=== PATIENT | male | born 1985 | race Caucasian/White ===

== ENCOUNTER 2017-10-26 21:31 | Emergency (ER) | payer MEDICAID ==
[~2017-10-26] VITALS: Ht 172.7 cm; Wt 91.0 kg
[2017-10-26] MEDS ORDERED: ONDANSETRON HCL 4MG/2ML VIAL IV STA (22:40)
[2017-10-26] MEDS ORDERED: MORPHINE SULFATE 4 MG/ML CPJ (NOT FOR IM USE) IV STA (22:40)
[2017-10-26] MEDS ORDERED: SODIUM CHLORIDE 0.9% 1,000 ML IV ONE (22:40)
[2017-10-26 23:27] LABS: CLARITY URINE CLEAR (CLEAR); COLOR URINE YELLOW (YELLOW); KETONES URINE 3+ (NEGATIVE); LEUKOCYTE ESTERASE URINE NEGATIVE (NEGATIVE); NITRITE URINE NEGATIVE (NEGATIVE); OCCULT BLOOD URINE NEGATIVE (NEGATIVE); PH URINE 5.5 (4.5-8.0); PROTEIN URINE 1+ (NEGATIVE); SPECIFIC GRAVITY URINE 1.051 (1.005-1.030); UROBILINOGEN URINE 0.2 E.U./dL (0.2-1.0)
[2017-10-26 23:41] LABS: BASOPHILS % 0.3 % (0.0-2.0); EOSINOPHILS % 0.1 % (0.0-5.0); HEMATOCRIT. 42.7 % (42.0-52.0); HEMOGLOBIN. 14.5 g/dL (14.0-18.0); LYMPHOCYTES % 8.5 % (20.0-50.0); MEAN CORPUSCULAR HEMOGLOBIN 31.7 pg (28.0-32.0); MEAN PLATELET VOLUME 7.9 fl (7.4-10.4); MONOCYTES % 2.6 % (2.0-8.0); NEUTROPHILS % 88.5 % (40.0-76.0); PLATELET 196 x1000/uL (130-400); RED BLOOD CELL COUNT 4.59 mill/uL (4.7-6.1); RED CELL DISTRIBUTION WIDTH 12.8 % (11.6-14.6)
[2017-10-26 23:47] LABS: INR 1.1; PROTHROMBIN TIME 11.3 sec (9.4-11.6)
[2017-10-26 23:48] LABS: CHLORIDE 109 mEq/L (98-107)
[2017-10-27] MEDS ORDERED: MORPHINE SULFATE 4 MG/ML CPJ (NOT FOR IM USE) IV STA (01:18)
[2017-10-27] MEDS ORDERED: ONDANSETRON HCL 4MG/2ML VIAL IV STA (01:18)
[2017-10-27 02:06] VITALS: BP 149/76
== END 2017-10-27 09:12 | disposition home or self-care (01) ==
LOC: ER 10-27 08:54
DX: R10.11 Right upper quadrant pain (principal); F17.200 Nicotine dependence, unspecified, uncomplicated
CPT/HCPCS: 36415; 76705; 80053; 81003; 83690; 85025; 85610; 96361; 96374; 96375; 96376; 99285; J2270; J2405; J7030; Z7610

== ENCOUNTER 2017-11-16 16:40 | Emergency (ER) | payer MEDICAID ==
[~2017-11-16] VITALS: Ht 172.7 cm; Wt 87.0 kg
[2017-11-16] MEDS ORDERED: SODIUM CHLORIDE 0.9% 1,000 ML IV ONE (19:49)
[2017-11-16] MEDS ORDERED: KETOROLAC 30MG/ML VIAL IV STA (19:49)
[2017-11-16] MEDS ORDERED: ONDANSETRON HCL 4MG/2ML VIAL IV STA (19:49)
[2017-11-16] MEDS ORDERED: FAMOTIDINE 20MG/2ML VIAL IV STA (19:49)
[2017-11-16] MEDS ORDERED: MAGNESIUM/ALUMINUM HYDROXIDE/SIMETHICONE 30ML UDC PO STA (19:49)
[2017-11-16 20:43] LABS: BASOPHILS % 0.2 % (0.0-2.0); HEMATOCRIT. 44.8 % (42.0-52.0); HEMOGLOBIN. 15.5 g/dL (14.0-18.0); LYMPHOCYTES % 7.9 % (20.0-50.0); MEAN CORPUSCULAR VOLUME 92.7 fL (80.0-94.0); MEAN PLATELET VOLUME 8.4 fl (7.4-10.4); NEUTROPHILS % 88.9 % (40.0-76.0); PLATELET 212 x1000/uL (130-400); RED BLOOD CELL COUNT 4.84 mill/uL (4.7-6.1); RED CELL DISTRIBUTION WIDTH 12.6 % (11.6-14.6)
[2017-11-16 20:44] LABS: CHLORIDE 101 mEq/L (98-107)
[2017-11-16 20:45] LABS: PROTHROMBIN TIME 10.8 sec (9.4-11.6)
[2017-11-16 20:49] LABS: ETHANOL BLOOD < 10 mg/dL
[2017-11-16] MEDS ORDERED: PIPERACILLIN/TAZ 3.375G PREMIX 50 ML IV ONE (21:15)
[2017-11-16] MEDS ORDERED: MORPHINE SULFATE 4 MG/ML CPJ (NOT FOR IM USE) IV ONE ×2 (21:15→23:15)
[2017-11-16] MEDS ORDERED: METRONIDAZOLE 500 MG PREMIX 100 ML IV ONE (21:15)
[2017-11-16] MEDS ORDERED: ONDANSETRON HCL 4MG/2ML VIAL IV ONE (21:15)
[2017-11-16 21:42] LABS: CLARITY URINE TURBID (CLEAR); COLOR URINE DARK YELLOW (YELLOW); KETONES URINE 3+ (NEGATIVE); LEUKOCYTE ESTERASE URINE NEGATIVE (NEGATIVE); NITRITE URINE NEGATIVE (NEGATIVE); OCCULT BLOOD URINE NEGATIVE (NEGATIVE); PH URINE 5.5 (4.5-8.0); PROTEIN URINE 1+ (NEGATIVE); SPECIFIC GRAVITY URINE 1.041 (1.005-1.030)
[2017-11-16 22:07] LABS: *BARBITURATES SCREEN URINE NEGATIVE (NEGATIVE)
[2017-11-16 22:08] LABS: *BENZODIAZEPINES SCREEN URINE NEGATIVE (NEGATIVE); *COCAINE SCREEN URINE NEGATIVE (NEGATIVE); CANNABINOID URINE SCREEN PRESUMTIVE POSITIVE (NEGATIVE); METHADONE URINE SCREEN NEGATIVE (NEGATIVE); OPIATES URINE SCREEN NEGATIVE (NEGATIVE); PHENCYCLIDINE URINE SCREEN NEGATIVE (NEGATIVE)
[2017-11-16 22:10] LABS: *AMPHETAMINES SCREEN URINE NEGATIVE (NEGATIVE)
[2017-11-17 01:10] VITALS: BP 140/78
== END 2017-11-17 02:15 | disposition home or self-care (01) ==
LOC: ER 16:40
DX: K29.70 Gastritis, unspecified, without bleeding (principal); E86.0 Dehydration; F17.200 Nicotine dependence, unspecified, uncomplicated
CPT/HCPCS: 36415; 74176; 76705; 80053; 80305; 81003; 83605; 83690; 84484; 85025; 85610; 87040; 87086; 96361; 96365; 96367; 96375; 96376; 99285; G0482; J1885; J2270; J2405; J2543; J3490; J7030; Z7610

== ENCOUNTER 2018-01-06 14:45 | Emergency (ER) | payer MEDICAID ==
[~2018-01-06] VITALS: Ht 167.6 cm; Wt 83.0 kg
[2018-01-06 15:13] VITALS: BP 174/110
[2018-01-06 15:53] LABS: CLARITY URINE CLEAR (CLEAR); COLOR URINE YELLOW (YELLOW); KETONES URINE 3+ (NEGATIVE); LEUKOCYTE ESTERASE URINE NEGATIVE (NEGATIVE); NITRITE URINE NEGATIVE (NEGATIVE); OCCULT BLOOD URINE NEGATIVE (NEGATIVE); PROTEIN URINE TRACE (NEGATIVE); SPECIFIC GRAVITY URINE 1.026 (1.005-1.030)
[2018-01-06 16:20] LABS: BASOPHILS % 0.5 % (0.0-2.0); EOSINOPHILS % 0.1 % (0.0-5.0); HEMATOCRIT. 47.7 % (42.0-52.0); HEMOGLOBIN. 16.6 g/dL (14.0-18.0); LYMPHOCYTES % 12.1 % (20.0-50.0); MEAN CORPUSCULAR HEMOGLOBIN 32.3 pg (28.0-32.0); MEAN CORPUSCULAR VOLUME 92.9 fL (80.0-94.0); MEAN PLATELET VOLUME 8.4 fl (7.4-10.4); MONOCYTES % 2.5 % (2.0-8.0); NEUTROPHILS % 84.8 % (40.0-76.0); PLATELET 218 x1000/uL (130-400); RED BLOOD CELL COUNT 5.13 mill/uL (4.7-6.1); RED CELL DISTRIBUTION WIDTH 12.6 % (11.6-14.6)
[2018-01-06 16:24] LABS: INR 1.1; PROTHROMBIN TIME 11.3 sec (9.1-11.1)
[2018-01-06 16:28] LABS: CHLORIDE 98 mEq/L (98-107)
== END 2018-01-06 20:00 | disposition left against medical advice (07) ==
LOC: ER 14:45
DX: R10.13 Epigastric pain (principal); K92.0 Hematemesis; Z87.11 Personal history of peptic ulcer disease
CPT/HCPCS: 36415; 80053; 81003; 83690; 85025; 85610; 99284

== ENCOUNTER 2018-04-30 18:30 | Emergency (ER) | payer MEDICAID ==
[~2018-04-30] VITALS: Ht 170.2 cm; Wt 85.0 kg
[2018-04-30] MEDS ORDERED: KETOROLAC 30MG/ML VIAL IV STA (20:28)
[2018-04-30] MEDS ORDERED: SODIUM CHLORIDE 0.9% 1,000 ML IV ONE (20:28)
[2018-04-30] MEDS ORDERED: MAGNESIUM/ALUMINUM HYDROXIDE/SIMETHICONE 30ML UDC PO STA (20:28)
[2018-04-30] MEDS ORDERED: ONDANSETRON HCL 4MG/2ML INJ IV ONE (20:45)
[2018-04-30 22:08] LABS: BASOPHILS % 0.7 % (0.0-2.0); HEMATOCRIT. 43.4 % (42.0-52.0); HEMOGLOBIN. 14.8 g/dL (14.0-18.0); LYMPHOCYTES % 9.4 % (20.0-50.0); MEAN CORPUSCULAR HEMOGLOBIN 31.8 pg (28.0-32.0); MEAN PLATELET VOLUME 7.5 fl (7.4-10.4); MONOCYTES % 2.5 % (2.0-8.0); NEUTROPHILS % 87.4 % (40.0-76.0); PLATELET 341 x1000/uL (130-400); RED BLOOD CELL COUNT 4.67 mill/uL (4.7-6.1); RED CELL DISTRIBUTION WIDTH 12.8 % (11.6-14.6)
[2018-04-30 22:11] LABS: CHLORIDE 103 mEq/L (98-107)
[2018-04-30 22:15] LABS: ETHANOL BLOOD < 10 mg/dL
[2018-04-30] MEDS ORDERED: HALOPERIDOL LACTATE 5MG/ML VIAL IM ONE (22:30)
[2018-05-01 00:54] VITALS: BP 139/77
== END 2018-05-01 00:57 | disposition home or self-care (01) ==
LOC: ER 18:30
DX: R10.13 Epigastric pain (principal); R11.2 Nausea with vomiting, unspecified; F12.90 Cannabis use, unspecified, uncomplicated
CPT/HCPCS: 36415; 80053; 83690; 85025; 96361; 96372; 96374; 96375; 99283; G0482; J1630; J1885; J2405; J7030